=== PATIENT | female | born 1955 | race Caucasian/White ===

== ENCOUNTER → 2023-12-07 08:17 | Outpatient (REF) | payer BC, SELFPAY | LOC: RAD 08:17 | PROVIDERS: ATTENDING PHYSICIAN Internal Medicine Hematology & Oncology; FAMILY PHYSICIAN Internal Medicine; REFERRING PHYSICIAN Nurse Practitioner Adult Health | DX: C50.811 Malignant neoplasm of overlapping sites of right female breast (principal); C79.51 Secondary malignant neoplasm of bone; D70.1 Agranulocytosis secondary to cancer chemotherapy; C78.2 Secondary malignant neoplasm of pleura; J91.0 Malignant pleural effusion | CPT/HCPCS: 71260; 74177; 78306; A9503; Q9967 ==

== ENCOUNTER → 2024-01-07 16:06 | Outpatient (REF) | payer BC, SELFPAY | LOC: MRI 3T 16:06 | PROVIDERS: ATTENDING PHYSICIAN Nurse Practitioner Adult Health; FAMILY PHYSICIAN Internal Medicine | DX: C50.811 Malignant neoplasm of overlapping sites of right female breast (principal); C79.51 Secondary malignant neoplasm of bone; D70.1 Agranulocytosis secondary to cancer chemotherapy; C78.2 Secondary malignant neoplasm of pleura; J91.0 Malignant pleural effusion | CPT/HCPCS: 74183; A9575 ==

== ENCOUNTER → 2024-01-23 09:11 | Outpatient (REF) | payer BC, SELFPAY ==
[2024-01-23 09:31] VITALS: BP 145/98; BP_SYST 103
[2024-01-23 09:44] VITALS: BP 134/105
== END ==
LOC: RADI 09:11
PROVIDERS: ATTENDING PHYSICIAN Internal Medicine Hematology & Oncology
DX: J90 Pleural effusion, not elsewhere classified (principal)
CPT/HCPCS: 32555; 71045

== ENCOUNTER → 2024-04-16 12:10 | Outpatient (REF) | payer BC, SELFPAY ==
[2024-04-16 12:20] LABS: % Basophils 0.4 % (0-2); % Eosinophils 1.2 % (0-6); % Immature Granulocytes 1.3 % (0-0.5); % Lymphocytes 4.9 % (20.5-51.1); % Monocytes 13.7 % (1.7-9.3); % Neutrophils 78.5 % (42.2-75.2); Absolute Basophils 0.1 10^3/uL (0-0.2); Absolute Eosinophils 0.2 10^3/uL (0-0.7); Absolute Immature Granulocytes 0.2 10^3/uL (0-0.05); Absolute Lymphocytes 0.7 10^3/uL (1.2-3.4); Absolute Neutrophils 11.4 10^3/uL (1.4-6.5); Hemoglobin 10.7 g/dL (12.0-16.0); Mean Corp Hgb Conc. 33.4 g/dL (33.0-37.0); Mean Corpuscular Hgb 31.2 pg (27.0-31.0); Mean Corpuscular Volume 93.3 fL (81.0-99.0); Nucleated Red Blood Cells % 0.5 %; Red Blood Cell Count 3.43 10^6/uL (4.20-5.40); Red Cell Dist. Width 22.6 % (11.5-14.5); White Blood Cell Count 14.6 10^3/uL (4.8-10.8)
[2024-04-16 13:10] LABS: Anisocytosis 2+; Normal RBC Morphology No
[2024-04-16 13:11] LABS: Hypochromasia 2+; Ovalocytes Slight; Poikilocytosis Slight
== END ==
LOC: OIDL 12:10
PROVIDERS: ATTENDING PHYSICIAN Internal Medicine Hematology & Oncology
DX: C50.811 Malignant neoplasm of overlapping sites of right female breast (principal)
CPT/HCPCS: 85025

== ENCOUNTER → 2024-05-14 08:49 | Outpatient (REF) | payer BC, SELFPAY ==
[2024-05-14 09:00] LABS: % Basophils 0.7 % (0-2); % Eosinophils 1.1 % (0-6); % Immature Granulocytes 0.3 % (0-0.5); % Lymphocytes 3.5 % (20.5-51.1); % Monocytes 18.5 % (1.7-9.3); % Neutrophils 75.9 % (42.2-75.2); Absolute Basophils 0.1 10^3/uL (0-0.2); Absolute Eosinophils 0.1 10^3/uL (0-0.7); Absolute Lymphocytes 0.3 10^3/uL (1.2-3.4); Absolute Monocytes 1.4 10^3/uL (0.1-0.6); Absolute Neutrophils 5.6 10^3/uL (1.4-6.5); Hematocrit 31.9 % (37.0-47.0); Hemoglobin 10.7 g/dL (12.0-16.0); Mean Corp Hgb Conc. 33.5 g/dL (33.0-37.0); Mean Corpuscular Hgb 30.6 pg (27.0-31.0); Mean Corpuscular Volume 91.1 fL (81.0-99.0); Platelet Count 178 10^3/uL (130-400); Red Cell Dist. Width 23.6 % (11.5-14.5); White Blood Cell Count 7.4 10^3/uL (4.8-10.8)
[2024-05-14 09:41] LABS: ALT (SGPT) 28 U/L (0-35); AST (SGOT) 44 U/L (14-36); Albumin 4.1 g/dl (3.5-5.0); Alkaline Phosphatase 172 U/L (38-126); Blood Urea Nitrogen 11 mg/dl (7-17); Calcium 9.5 mg/dl (8.4-10.2); Carbon Dioxide 27 mmol/L (22-30); Chloride 94 mmol/L (98-107); Glucose 114 mg/dl (70-99); Potassium 4.5 mmol/L (3.5-5.1); Sodium 130 mmol/L (135-145); Total Bilirubin 0.6 mg/dl (0.2-1.3); Total Protein 6.5 g/dl (6.3-8.2); eGFR > 60.00
== END ==
LOC: OIDL 08:49
PROVIDERS: ATTENDING PHYSICIAN Internal Medicine Hematology & Oncology
DX: C50.811 Malignant neoplasm of overlapping sites of right female breast (principal)
CPT/HCPCS: 80053; 85025

== ENCOUNTER → 2024-05-21 10:06 | Outpatient (REF) | payer BC, SELFPAY ==
[2024-05-21 09:38] LABS: % Basophils 0.9 % (0-2); % Eosinophils 2.3 % (0-6); % Immature Granulocytes 0.7 % (0-0.5); % Lymphocytes 4.2 % (20.5-51.1); % Monocytes 8.9 % (1.7-9.3); Absolute Eosinophils 0.1 10^3/uL (0-0.7); Absolute Lymphocytes 0.2 10^3/uL (1.2-3.4); Absolute Monocytes 0.4 10^3/uL (0.1-0.6); Absolute Neutrophils 3.5 10^3/uL (1.4-6.5); Hematocrit 30.6 % (37.0-47.0); Hemoglobin 10.1 g/dL (12.0-16.0); Mean Corpuscular Hgb 29.8 pg (27.0-31.0); Mean Corpuscular Volume 90.3 fL (81.0-99.0); Platelet Count 146 10^3/uL (130-400); Red Blood Cell Count 3.39 10^6/uL (4.20-5.40); Red Cell Dist. Width 24.3 % (11.5-14.5); White Blood Cell Count 4.3 10^3/uL (4.8-10.8)
[2024-05-21 10:57] LABS: ALT (SGPT) 29 U/L (0-35); AST (SGOT) 46 U/L (14-36); Albumin 4.2 g/dl (3.5-5.0); Alkaline Phosphatase 172 U/L (38-126); Blood Urea Nitrogen 13 mg/dl (7-17); Carbon Dioxide 27 mmol/L (22-30); Chloride 94 mmol/L (98-107); Glucose 93 mg/dl (70-99); Potassium 4.7 mmol/L (3.5-5.1); Sodium 131 mmol/L (135-145); Total Bilirubin 0.5 mg/dl (0.2-1.3); Total Protein 6.6 g/dl (6.3-8.2); eGFR > 60.00
== END ==
LOC: OIDL 10:06
PROVIDERS: ATTENDING PHYSICIAN Internal Medicine Hematology & Oncology
DX: C50.811 Malignant neoplasm of overlapping sites of right female breast (principal)
CPT/HCPCS: 80053; 85025

== ENCOUNTER → 2024-06-03 08:25 | Outpatient (REF) | payer BC, SELFPAY | LOC: RAD 08:25 | PROVIDERS: ATTENDING PHYSICIAN Internal Medicine Hematology & Oncology; FAMILY PHYSICIAN Internal Medicine | DX: C50.811 Malignant neoplasm of overlapping sites of right female breast (principal); C79.51 Secondary malignant neoplasm of bone; D70.1 Agranulocytosis secondary to cancer chemotherapy; C78.2 Secondary malignant neoplasm of pleura; J91.0 Malignant pleural effusion | CPT/HCPCS: 71260; 74177; Q9967 ==

== ENCOUNTER → 2024-06-04 11:11 | Outpatient (REF) | payer BC, SELFPAY ==
[2024-06-04 10:42] LABS: % Basophils 0.4 % (0-2); % Eosinophils 0.9 % (0-6); % Immature Granulocytes 1.1 % (0-0.5); % Lymphocytes 5.3 % (20.5-51.1); % Monocytes 16.4 % (1.7-9.3); % Neutrophils 75.9 % (42.2-75.2); Absolute Basophils 0.1 10^3/uL (0-0.2); Absolute Eosinophils 0.1 10^3/uL (0-0.7); Absolute Immature Granulocytes 0.2 10^3/uL (0-0.05); Absolute Lymphocytes 0.8 10^3/uL (1.2-3.4); Absolute Monocytes 2.3 10^3/uL (0.1-0.6); Absolute Neutrophils 10.7 10^3/uL (1.4-6.5); Hematocrit 33.8 % (37.0-47.0); Hemoglobin 11.2 g/dL (12.0-16.0); Mean Corp Hgb Conc. 33.1 g/dL (33.0-37.0); Mean Corpuscular Hgb 29.1 pg (27.0-31.0); Mean Corpuscular Volume 87.8 fL (81.0-99.0); Nucleated Red Blood Cells % 0.2 %; Platelet Count 143 10^3/uL (130-400); Red Blood Cell Count 3.85 10^6/uL (4.20-5.40); Red Cell Dist. Width 25.2 % (11.5-14.5); White Blood Cell Count 14.1 10^3/uL (4.8-10.8)
[2024-06-04 10:53] LABS: ALT (SGPT) 21 U/L (0-35); AST (SGOT) 39 U/L (14-36); Alkaline Phosphatase 194 U/L (38-126); Blood Urea Nitrogen 8 mg/dl (7-17); Calcium 9.5 mg/dl (8.4-10.2); Carbon Dioxide 28 mmol/L (22-30); Chloride 95 mmol/L (98-107); Glucose 91 mg/dl (70-99); Sodium 132 mmol/L (135-145); Total Bilirubin 0.5 mg/dl (0.2-1.3); eGFR > 60.00
[2024-06-04 11:11] LABS: Total Protein 6.3 g/dl (6.3-8.2)
== END ==
LOC: OIDL 11:11
PROVIDERS: ATTENDING PHYSICIAN Internal Medicine Hematology & Oncology
DX: C50.811 Malignant neoplasm of overlapping sites of right female breast (principal)
CPT/HCPCS: 80053; 85025

== ENCOUNTER → 2024-06-11 10:14 | Outpatient (REF) | payer BC, SELFPAY ==
--- NOTE | 2024-06-11 10:51 | W.PN.UPDATE ---
Update Note
Progress Note Update
69 yo female with h/o breast cancer comes in today for a port site check. She was sent over from the cancer center for evaluation. They note some discoloration over the port. The patient denies pain, fever, chills, erythema or warmth to the area.
She does state she has had some itching around the site which she was scratching earlier.
PE: WN/WD 69 yo female in NAD. The right chest has a SL port. The site is slightly ecchymotic. There is no tenderness to palpation. There is no warmth or erythema. There is no fluctuance. There is no wound dehiscence or open areas over the
port. There is no warmth, erythema or tenderness over the catheter or venotomy.
A/P: 69 yo female with h/o breast cancer comes for port site check.
There is no sign of infection/cellulitis
There is no sign of wound dehiscence
Port is OK to use
== END ==
LOC: RADI 10:14
PROVIDERS: ATTENDING PHYSICIAN Nurse Practitioner Acute Care
DX: Z45.2 Encounter for adjustment and management of vascular access device (principal); C50.919 Malignant neoplasm of unspecified site of unspecified female breast

== ENCOUNTER → 2024-06-11 13:39 | Outpatient (REF) | payer BC, SELFPAY ==
[2024-06-11 10:45] LABS: % Basophils 1.3 % (0-2); % Immature Granulocytes 4.9 % (0-0.5); % Lymphocytes 7.2 % (20.5-51.1); % Monocytes 18.1 % (1.7-9.3); % Neutrophils 67.5 % (42.2-75.2); Absolute Immature Granulocytes 0.2 10^3/uL (0-0.05); Absolute Lymphocytes 0.2 10^3/uL (1.2-3.4); Absolute Monocytes 0.6 10^3/uL (0.1-0.6); Absolute Neutrophils 2.1 10^3/uL (1.4-6.5); Hematocrit 33.7 % (37.0-47.0); Hemoglobin 10.9 g/dL (12.0-16.0); Mean Corp Hgb Conc. 32.3 g/dL (33.0-37.0); Mean Corpuscular Hgb 28.5 pg (27.0-31.0); Mean Corpuscular Volume 88.2 fL (81.0-99.0); Platelet Count 145 10^3/uL (130-400); Red Blood Cell Count 3.82 10^6/uL (4.20-5.40); Red Cell Dist. Width 25.1 % (11.5-14.5)
[2024-06-11 13:05] LABS: ALT (SGPT) 24 U/L (0-35); AST (SGOT) 41 U/L (14-36); Albumin 4.1 g/dl (3.5-5.0); Alkaline Phosphatase 175 U/L (38-126); Blood Urea Nitrogen 12 mg/dl (7-17); Calcium 9.8 mg/dl (8.4-10.2); Carbon Dioxide 31 mmol/L (22-30); Chloride 93 mmol/L (98-107); Glucose 102 mg/dl (70-99); Potassium 5.1 mmol/L (3.5-5.1); Sodium 131 mmol/L (135-145); Total Bilirubin 0.7 mg/dl (0.2-1.3); Total Protein 6.5 g/dl (6.3-8.2); eGFR > 60.00
== END ==
LOC: OIDL 13:39
PROVIDERS: ATTENDING PHYSICIAN Internal Medicine Hematology & Oncology
DX: C50.811 Malignant neoplasm of overlapping sites of right female breast (principal)
CPT/HCPCS: 80053; 85025

== ENCOUNTER → 2024-06-13 16:00 | Outpatient (REF) | payer BC, SELFPAY | LOC: MRI 3T 16:00 | PROVIDERS: ATTENDING PHYSICIAN Internal Medicine Hematology & Oncology; FAMILY PHYSICIAN Internal Medicine | DX: C79.51 Secondary malignant neoplasm of bone (principal); D70.1 Agranulocytosis secondary to cancer chemotherapy; C78.2 Secondary malignant neoplasm of pleura; J91.0 Malignant pleural effusion; C50.811 Malignant neoplasm of overlapping sites of right female breast | CPT/HCPCS: 74183; A9575 ==

== ENCOUNTER → 2024-06-17 10:10 | Outpatient (REF) | payer BC, SELFPAY | LOC: HWRCS 10:10 | PROVIDERS: ATTENDING PHYSICIAN Internal Medicine Hematology & Oncology | DX: J91.0 Malignant pleural effusion (principal) | CPT/HCPCS: 93306 ==

== ENCOUNTER → 2024-06-19 10:35 | Outpatient (REF) | payer BC, SELFPAY ==
[2024-06-19 10:58] VITALS: BP 135/92; BP_SYST 106
== END ==
LOC: RADI 10:35
PROVIDERS: ATTENDING PHYSICIAN Internal Medicine Hematology & Oncology; FAMILY PHYSICIAN Internal Medicine
DX: J90 Pleural effusion, not elsewhere classified (principal)
CPT/HCPCS: 88305; 32555; 71045; 88112; 88341; 88342

== ENCOUNTER → 2024-06-24 16:08 | Outpatient (REF) | payer BC, SELFPAY ==
[2024-06-24 16:51] LABS: Hematocrit 31.3 % (37.0-47.0); Hemoglobin 10.5 g/dL (12.0-16.0); Mean Corp Hgb Conc. 33.5 g/dL (33.0-37.0); Mean Corpuscular Hgb 28.5 pg (27.0-31.0); Mean Corpuscular Volume 85.1 fL (81.0-99.0); Platelet Count 131 10^3/uL (130-400); Red Blood Cell Count 3.68 10^6/uL (4.20-5.40); White Blood Cell Count 28.6 10^3/uL (4.8-10.8)
[2024-06-24 17:12] LABS: ALT (SGPT) 26 U/L (0-35); AST (SGOT) 47 U/L (14-36); Albumin 3.9 g/dl (3.5-5.0); Alkaline Phosphatase 213 U/L (38-126); Blood Urea Nitrogen 12 mg/dl (7-17); Calcium 9.3 mg/dl (8.4-10.2); Carbon Dioxide 27 mmol/L (22-30); Chloride 93 mmol/L (98-107); Glucose 94 mg/dl (70-99); Potassium 4.3 mmol/L (3.5-5.1); Sodium 130 mmol/L (135-145); Total Bilirubin 0.5 mg/dl (0.2-1.3); Total Protein 6.1 g/dl (6.3-8.2); eGFR > 60.00
[2024-06-24 17:58] LABS: % Basophils 0.5 % (0-2); % Eosinophils 0.9 % (0-6); % Immature Granulocytes 0.9 % (0-0.5); % Lymphocytes 7.7 % (20.5-51.1); % Monocytes 12.3 % (1.7-9.3); % Neutrophils 77.7 % (42.2-75.2); Absolute Basophils 0.1 10^3/uL (0-0.2); Absolute Eosinophils 0.3 10^3/uL (0-0.7); Absolute Immature Granulocytes 0.3 10^3/uL (0-0.05); Absolute Lymphocytes 2.2 10^3/uL (1.2-3.4); Absolute Monocytes 3.5 10^3/uL (0.1-0.6); Absolute Neutrophils 22.2 10^3/uL (1.4-6.5); Nucleated Red Blood Cells % 0.2 %
[2024-06-24 18:00] LABS: Anisocytosis 2+; Normal RBC Morphology No
[2024-06-24 18:01] LABS: Ovalocytes Slight; Poikilocytosis Slight
[2024-06-24 18:03] LABS: Schistocytes Slight
[2024-06-24 18:04] LABS: Microcytosis 1+
== END ==
LOC: OIDL 16:08
PROVIDERS: ATTENDING PHYSICIAN Internal Medicine Hematology & Oncology
DX: C50.811 Malignant neoplasm of overlapping sites of right female breast (principal)
CPT/HCPCS: 80053; 85025

== ENCOUNTER → 2024-07-16 15:45 | Outpatient (REF) | payer BC, SELFPAY ==
[2024-07-16 10:00] LABS: % Basophils 0.5 % (0-2); % Eosinophils 5.1 % (0-6); % Immature Granulocytes 0.5 % (0-0.5); % Lymphocytes 7.9 % (20.5-51.1); % Monocytes 24.5 % (1.7-9.3); % Neutrophils 60.8 % (42.2-75.2); Absolute Eosinophils 0.2 10^3/uL (0-0.7); Absolute Lymphocytes 0.4 10^3/uL (1.2-3.4); Absolute Monocytes 0.9 10^3/uL (0.1-0.6); Absolute Neutrophils 2.3 10^3/uL (1.4-6.5); Hematocrit 29.7 % (37.0-47.0); Hemoglobin 9.9 g/dL (12.0-16.0); Mean Corp Hgb Conc. 32.9 g/dL (33.0-37.0); Mean Corpuscular Hgb 27.8 pg (27.0-31.0); Mean Corpuscular Volume 84.6 fL (81.0-99.0); Nucleated Red Blood Cells % 1.1 %; Platelet Count 173 10^3/uL (130-400); Red Blood Cell Count 3.63 10^6/uL (4.20-5.40); Red Cell Dist. Width 25.9 % (11.5-14.5); White Blood Cell Count 3.8 10^3/uL (4.8-10.8)
[2024-07-16 10:13] LABS: ALT (SGPT) 22 U/L (0-35); AST (SGOT) 35 U/L (14-36); Albumin 3.8 g/dl (3.5-5.0); Alkaline Phosphatase 141 U/L (38-126); Blood Urea Nitrogen 8 mg/dl (7-17); Calcium 9.4 mg/dl (8.4-10.2); Carbon Dioxide 28 mmol/L (22-30); Chloride 96 mmol/L (98-107); Glucose 107 mg/dl (70-99); Potassium 4.3 mmol/L (3.5-5.1); Sodium 135 mmol/L (135-145); Total Bilirubin 0.7 mg/dl (0.2-1.3); Total Protein 6.3 g/dl (6.3-8.2); eGFR > 60.00
[2024-07-16 10:57] LABS: Absolute Neutrophils -Man Diff 2.5 10^3/uL (1.4-6.5); Atypical Lymphocytes 1 %; Band Neutrophils 11 % (0-3); Eosinophils 6 % (0-6); Lymphocytes 4 % (20-51); Monocytes 17 % (2-9); Myelocytes 3 % (-); Segmented Neutrophils 57 % (42-75)
[2024-07-16 10:58] LABS: Anisocytosis 2+; Hypochromasia 1+; Normal RBC Morphology No; Platelets Checked Yes; Poikilocytosis 1+
[2024-07-16 10:59] LABS: Acanthocytes 1+; Schistocytes 1+
[2024-07-16 11:00] LABS: Macrocytosis Occasional; Microcytosis 1+
[2024-07-16 11:01] LABS: Ovalocytes 1+; Total Cells Counted 100
== END ==
LOC: OIDL 15:45
PROVIDERS: ATTENDING PHYSICIAN Internal Medicine Hematology & Oncology
DX: C50.811 Malignant neoplasm of overlapping sites of right female breast (principal)
CPT/HCPCS: 80053; 85025

== ENCOUNTER → 2024-08-05 12:03 | Outpatient (REF) | payer BC, SELFPAY ==
[2024-08-05 11:55] LABS: Hematocrit 31.5 % (37.0-47.0); Hemoglobin 10.4 g/dL (12.0-16.0); Mean Corpuscular Hgb 26.9 pg (27.0-31.0); Mean Corpuscular Volume 81.4 fL (81.0-99.0); Platelet Count 153 10^3/uL (130-400); Red Blood Cell Count 3.87 10^6/uL (4.20-5.40); Red Cell Dist. Width 26.7 % (11.5-14.5); White Blood Cell Count 7.7 10^3/uL (4.8-10.8)
[2024-08-05 12:05] LABS: ALT (SGPT) 27 U/L (0-35); AST (SGOT) 42 U/L (14-36); Albumin 3.8 g/dl (3.5-5.0); Alkaline Phosphatase 130 U/L (38-126); Blood Urea Nitrogen 8 mg/dl (7-17); Carbon Dioxide 30 mmol/L (22-30); Chloride 94 mmol/L (98-107); Glucose 98 mg/dl (70-99); Potassium 4.4 mmol/L (3.5-5.1); Sodium 136 mmol/L (135-145); Total Bilirubin 0.5 mg/dl (0.2-1.3); Total Protein 6.2 g/dl (6.3-8.2); eGFR > 60.00
[2024-08-05 12:20] LABS: Absolute Neutrophils -Man Diff 6.3 10^3/uL (1.4-6.5); Band Neutrophils 3 % (0-3); Lymphocytes 8 % (20-51); Metamyelocytes 1 % (-); Monocytes 6 % (2-9); Myelocytes 3 % (-); Platelets Checked Yes; Segmented Neutrophils 79 % (42-75)
[2024-08-05 12:21] LABS: Anisocytosis 1+; Normal RBC Morphology No; Ovalocytes Slight; Schistocytes Slight; Total Cells Counted 100
[2024-08-08 05:00] LABS: CA 27-29 95.1 U/mL (<=39.0)
== END ==
LOC: OIDL 12:03
PROVIDERS: ATTENDING PHYSICIAN Internal Medicine Hematology & Oncology
DX: C50.811 Malignant neoplasm of overlapping sites of right female breast (principal); C79.51 Secondary malignant neoplasm of bone; D70.1 Agranulocytosis secondary to cancer chemotherapy; C78.2 Secondary malignant neoplasm of pleura; J91.0 Malignant pleural effusion
CPT/HCPCS: 80053; 85025; 86300

== ENCOUNTER → 2024-08-26 11:15 | Outpatient (REF) | payer BC, SELFPAY ==
[2024-08-26 09:18] LABS: ALT (SGPT) 23 U/L (0-35); AST (SGOT) 33 U/L (14-36); Albumin 3.7 g/dl (3.5-5.0); Alkaline Phosphatase 106 U/L (38-126); Blood Urea Nitrogen 10 mg/dl (7-17); Carbon Dioxide 29 mmol/L (22-30); Chloride 96 mmol/L (98-107); Glucose 115 mg/dl (70-99); Potassium 4.2 mmol/L (3.5-5.1); Sodium 136 mmol/L (135-145); Total Bilirubin 0.6 mg/dl (0.2-1.3); Total Protein 6.2 g/dl (6.3-8.2); eGFR > 60.00
[2024-08-26 09:46] LABS: Hematocrit 31.5 % (37.0-47.0); Hemoglobin 9.9 g/dL (12.0-16.0); Mean Corp Hgb Conc. 31.4 g/dL (33.0-37.0); Mean Corpuscular Hgb 26.1 pg (27.0-31.0); Mean Corpuscular Volume 82.9 fL (81.0-99.0); Platelet Count 141 10^3/uL (130-400); Red Cell Dist. Width 27.6 % (11.5-14.5)
[2024-08-26 13:31] LABS: Total Cells Counted 100
[2024-08-26 13:36] LABS: Poikilocytosis Moderate; Schistocytes Occasional
[2024-08-26 13:37] LABS: Hypochromasia Moderate; Normal RBC Morphology No; Platelets Checked Yes
[2024-08-26 13:38] LABS: Absolute Neutrophils -Man Diff 3.7 10^3/uL (1.4-6.5); Band Neutrophils 4 % (0-3); Eosinophils 4 % (0-6); Lymphocytes 7 % (20-51); Segmented Neutrophils 58 % (42-75)
[2024-08-26 13:39] LABS: Anisocytosis Moderate; Monocytes 16 % (2-9); Myelocytes 8 % (-); Nucleated Red Blood Cells 1 (-)
== END ==
LOC: OIDL 11:15
PROVIDERS: ATTENDING PHYSICIAN Internal Medicine Hematology & Oncology
DX: C50.811 Malignant neoplasm of overlapping sites of right female breast (principal); C79.51 Secondary malignant neoplasm of bone; D70.1 Agranulocytosis secondary to cancer chemotherapy; C78.2 Secondary malignant neoplasm of pleura; J91.0 Malignant pleural effusion
CPT/HCPCS: 80053; 85025

== ENCOUNTER → 2024-09-01 11:29 | Outpatient (REF) | payer BC, SELFPAY ==
[2024-09-01 13:00] LABS: Urine Albumin Trace (Neg - Trace); Urine Bilirubin Negative (Negative); Urine Character Clear (Clear); Urine Color Yellow; Urine Glucose Negative (Negative); Urine Ketone Negative (Negative); Urine Leukocyte 2+ (Negative); Urine Nitrite Negative (Negative); Urine Occult Blood 3+ (Negative); Urine Urobilinogen Negative (Neg - 1+)
[2024-09-01 14:25] LABS: Urine Urothelial Cell 0-2 /LPF (FEW)
[2024-09-01 14:26] LABS: Urine Red Blood Cell 16-20 /HPF (0-2)
[2024-09-01 14:27] LABS: Urine Bacteria Moderate (Negative); Urine White Cell 26-30 /HPF (0-5)
== END ==
LOC: REG 11:29
PROVIDERS: ATTENDING PHYSICIAN Internal Medicine Hematology & Oncology; FAMILY PHYSICIAN Internal Medicine
DX: C50.811 Malignant neoplasm of overlapping sites of right female breast (principal); C79.51 Secondary malignant neoplasm of bone; D70.1 Agranulocytosis secondary to cancer chemotherapy; C78.2 Secondary malignant neoplasm of pleura; J91.0 Malignant pleural effusion
CPT/HCPCS: 81003; 81015; 87077; 87086; 87186

== ENCOUNTER → 2024-09-10 10:03 | Outpatient (REF) | payer BC, SELFPAY ==
--- NOTE | 2024-09-10 10:16 | W.PN.UPDATE ---
Update Note
Progress Note Update
This is a 69 yo female with h/o breast cancer who comes in today for a port site check. She was sent over from the cancer center for evaluation. They note some discoloration over the port and a small scab ovee the center of the port where it has
been accessed. The patient denies pain, fever, chills, drainage from the site, erythema or warmth to the area. She states it has been like that for awhile and that there is concern it may erode through.
PE: WN/WD 69 yo female in NAD. The right chest has a SL port. The site is slightly discolored -which is chronic. There is a small scab over the middle of the port. There is no fluctuance or drainage. There is no tenderness to palpation. There
is no warmth or erythema. There is no wound dehiscence or open areas over the port. There is no warmth, erythema or tenderness over the catheter or venotomy.
A/P: 69 yo female with h/o breast cancer comes for port site check.
There is no sign of infection/cellulitis
There is no sign of wound dehiscence
Port is OK to use
== END ==
LOC: RADI 10:03
PROVIDERS: ATTENDING PHYSICIAN Internal Medicine Hematology & Oncology; FAMILY PHYSICIAN Internal Medicine
DX: Z45.2 Encounter for adjustment and management of vascular access device (principal); C50.811 Malignant neoplasm of overlapping sites of right female breast

== ENCOUNTER → 2024-09-12 08:57 | Outpatient (REF) | payer BC, SELFPAY | LOC: HWRCS 08:57 | PROVIDERS: ATTENDING PHYSICIAN Internal Medicine Hematology & Oncology; FAMILY PHYSICIAN Internal Medicine | DX: C50.811 Malignant neoplasm of overlapping sites of right female breast (principal) | CPT/HCPCS: 93306 ==

== ENCOUNTER → 2024-09-16 16:08 | Outpatient (REF) | payer BC, SELFPAY ==
[2024-09-16 09:27] LABS: Hematocrit 29.6 % (37.0-47.0); Hemoglobin 9.7 g/dL (12.0-16.0); Mean Corp Hgb Conc. 32.8 g/dL (33.0-37.0); Mean Corpuscular Hgb 26.6 pg (27.0-31.0); Mean Corpuscular Volume 81.1 fL (81.0-99.0); Platelet Count 148 10^3/uL (130-400); Red Blood Cell Count 3.65 10^6/uL (4.20-5.40); Red Cell Dist. Width 27.5 % (11.5-14.5); White Blood Cell Count 5.8 10^3/uL (4.8-10.8)
[2024-09-16 09:34] LABS: ALT (SGPT) 18 U/L (0-35); AST (SGOT) 32 U/L (14-36); Albumin 3.6 g/dl (3.5-5.0); Alkaline Phosphatase 110 U/L (38-126); Blood Urea Nitrogen 14 mg/dl (7-17); Calcium 9.4 mg/dl (8.4-10.2); Carbon Dioxide 28 mmol/L (22-30); Chloride 99 mmol/L (98-107); Glucose 94 mg/dl (70-99); Potassium 4.3 mmol/L (3.5-5.1); Sodium 136 mmol/L (135-145); Total Bilirubin 0.5 mg/dl (0.2-1.3); Total Protein 6.1 g/dl (6.3-8.2); eGFR > 60.00
[2024-09-16 09:54] LABS: Absolute Neutrophils -Man Diff 3.4 10^3/uL (1.4-6.5); Anisocytosis 2+; Band Neutrophils 11 % (0-3); Eosinophils 4 % (0-6); Lymphocytes 11 % (20-51); Monocytes 26 % (2-9); Normal RBC Morphology No; Platelets Checked Yes; Segmented Neutrophils 48 % (42-75)
[2024-09-16 09:55] LABS: Schistocytes 1+; Target Cells 1+; Total Cells Counted 100
== END ==
LOC: OIDL 16:08
PROVIDERS: ATTENDING PHYSICIAN Internal Medicine Hematology & Oncology
DX: C50.811 Malignant neoplasm of overlapping sites of right female breast (principal); C79.51 Secondary malignant neoplasm of bone; D70.1 Agranulocytosis secondary to cancer chemotherapy; C78.2 Secondary malignant neoplasm of pleura; J91.0 Malignant pleural effusion
CPT/HCPCS: 80053; 85025

== ENCOUNTER → 2024-09-23 08:34 | Outpatient (REF) | payer BC, SELFPAY | LOC: RAD 08:34 | PROVIDERS: ATTENDING PHYSICIAN Internal Medicine Hematology & Oncology; FAMILY PHYSICIAN Internal Medicine | DX: C50.811 Malignant neoplasm of overlapping sites of right female breast (principal); C79.51 Secondary malignant neoplasm of bone; D70.1 Agranulocytosis secondary to cancer chemotherapy; C78.2 Secondary malignant neoplasm of pleura; J91.0 Malignant pleural effusion | CPT/HCPCS: 71260; 74177; Q9967 ==

== ENCOUNTER → 2024-10-07 16:24 | Outpatient (REF) | payer BC, SELFPAY ==
[2024-10-07 12:35] LABS: Hematocrit 30.1 % (37.0-47.0); Hemoglobin 9.4 g/dL (12.0-16.0); Mean Corp Hgb Conc. 31.2 g/dL (33.0-37.0); Mean Corpuscular Hgb 25.8 pg (27.0-31.0); Mean Corpuscular Volume 82.5 fL (81.0-99.0); Platelet Count 131 10^3/uL (130-400); Red Blood Cell Count 3.65 10^6/uL (4.20-5.40); Red Cell Dist. Width 27.4 % (11.5-14.5); White Blood Cell Count 5.3 10^3/uL (4.8-10.8)
[2024-10-07 12:46] LABS: ALT (SGPT) 18 U/L (0-35); AST (SGOT) 31 U/L (14-36); Albumin 3.5 g/dl (3.5-5.0); Alkaline Phosphatase 136 U/L (38-126); Blood Urea Nitrogen 11 mg/dl (7-17); Calcium 8.8 mg/dl (8.4-10.2); Carbon Dioxide 29 mmol/L (22-30); Chloride 98 mmol/L (98-107); Glucose 96 mg/dl (70-99); Potassium 3.8 mmol/L (3.5-5.1); Sodium 135 mmol/L (135-145); Total Bilirubin 0.6 mg/dl (0.2-1.3); eGFR > 60.00
[2024-10-07 13:23] LABS: Absolute Neutrophils -Man Diff 3.2 10^3/uL (1.4-6.5); Anisocytosis 2+; Atypical Lymphocytes 2 %; Band Neutrophils 15 % (0-3); Eosinophils 2 % (0-6); Hypochromasia 2+; Lymphocytes 6 % (20-51); Metamyelocytes 2 % (-); Monocytes 17 % (2-9); Myelocytes 9 % (-); Normal RBC Morphology No; Platelets Checked Yes; Segmented Neutrophils 47 % (42-75)
[2024-10-07 13:24] LABS: Acanthocytes 1+; Microcytosis 1+; Schistocytes Occasional
[2024-10-07 13:25] LABS: Ovalocytes 1+; Total Cells Counted 100
== END ==
LOC: OIDL 16:24
PROVIDERS: ATTENDING PHYSICIAN Internal Medicine Hematology & Oncology
DX: C50.811 Malignant neoplasm of overlapping sites of right female breast (principal)
CPT/HCPCS: 80053; 85025

== ENCOUNTER → 2024-10-27 11:17 | Outpatient (REF) | payer BC, SELFPAY ==
--- NOTE | 2024-10-27 11:48 | W.PN.UPDATE ---
Update Note
Progress Note Update
69 yo female presents for port site check. Pt reports she had a scab over the well of the port that fell off but did not bleed. She otherwise feels well
PE: The well of the port is exposed. No surrounding erythema or bleeding. The area is nontender
A/P: Recommend port removal and replacement
== END ==
LOC: RADI 11:17
PROVIDERS: ATTENDING PHYSICIAN Internal Medicine Hematology & Oncology
DX: T82.594A Other mechanical complication of infusion catheter, initial encounter (principal); Y82.8 Other medical devices associated with adverse incidents
CPT/HCPCS: 80053; 85025

== ENCOUNTER → 2024-11-03 09:14 | Outpatient (REF) | payer BC, SELFPAY ==
[2024-11-03] VITALS (9 sets, daily range): BP systolic 79–114; BP diastolic 57–65
[2024-11-03] MEDS: ANCEF 10 IV (10:48)
[2024-11-03] MEDS: ATIVAN 0.5 MG IV (10:48)
== END ==
LOC: RADI 09:14
PROVIDERS: ATTENDING PHYSICIAN Internal Medicine Hematology & Oncology; FAMILY PHYSICIAN Internal Medicine
DX: Z45.2 Encounter for adjustment and management of vascular access device (principal); C50.811 Malignant neoplasm of overlapping sites of right female breast
CPT/HCPCS: 36561; 36590; 76937; 77001; 99152; 99153

== ENCOUNTER → 2024-11-06 10:43 | Outpatient (REF) | payer BC, SELFPAY ==
--- NOTE | 2024-11-06 11:01 | W.PN.UPDATE ---
Update Note
Progress Note Update
69 yo female presents for wound check. She had a right chest port removal on 11/03/24. When she removed the dressing she notice an opening as well as a small amount of bleeding. She was sent from [facility] for site check. Port was
removed because it eroded through the skin. After the removal that area was not sutured and left open to heal by secondary intention.
There is a 0.5cm area that is opened. There is no erythema or drainage. No warmth or concern for infection.
Pt was advised this could take awhile to granulate in and that she should keep the area covered
== END ==
LOC: RADI 10:43
PROVIDERS: ATTENDING PHYSICIAN Internal Medicine Hematology & Oncology; FAMILY PHYSICIAN Internal Medicine
DX: Z48.817 Encounter for surgical aftercare following surgery on the skin and subcutaneous tissue (principal)

== ENCOUNTER → 2024-11-14 08:07 | Outpatient (REF) | payer BC, SELFPAY | LOC: WOUND 08:07 | PROVIDERS: ATTENDING PHYSICIAN Surgery; FAMILY PHYSICIAN Internal Medicine | DX: T81.31XA Disruption of external operation (surgical) wound, not elsewhere classified, initial encounter (principal); T81.41XA Infection following a procedure, superficial incisional surgical site, initial encounter; S21.101A Unspecified open wound of right front wall of thorax without penetration into thoracic cavity, initial encounter; Y83.8 Other surgical procedures as the cause of abnormal reaction of the patient, or of later complication, without mention of misadventure at the time of the procedure; X58.XXXA Exposure to other specified factors, initial encounter | CPT/HCPCS: 87070; 87075; 87205; 99204 ==

== ENCOUNTER → 2024-11-18 10:40 | Outpatient (REF) | payer BC, SELFPAY ==
[2024-11-18 11:18] LABS: ALT (SGPT) 39 U/L (0-35); AST (SGOT) 66 U/L (14-36); Albumin 3.8 g/dl (3.5-5.0); Alkaline Phosphatase 325 U/L (38-126); Blood Urea Nitrogen 11 mg/dl (7-17); Calcium 9.4 mg/dl (8.4-10.2); Carbon Dioxide 27 mmol/L (22-30); Chloride 93 mmol/L (98-107); Glucose 96 mg/dl (70-99); Potassium 3.8 mmol/L (3.5-5.1); Sodium 130 mmol/L (135-145); Total Bilirubin 1.2 mg/dl (0.2-1.3); Total Protein 6.3 g/dl (6.3-8.2); eGFR > 60.00
[2024-11-18 11:21] LABS: Hematocrit 31.7 % (37.0-47.0); Mean Corp Hgb Conc. 31.5 g/dL (33.0-37.0); Mean Corpuscular Hgb 25.4 pg (27.0-31.0); Mean Corpuscular Volume 80.7 fL (81.0-99.0); Platelet Count 109 10^3/uL (130-400); Red Blood Cell Count 3.93 10^6/uL (4.20-5.40); Red Cell Dist. Width 28.3 % (11.5-14.5); White Blood Cell Count 3.9 10^3/uL (4.8-10.8)
[2024-11-18 11:38] LABS: Absolute Neutrophils -Man Diff 2.5 10^3/uL (1.4-6.5); Band Neutrophils 5 % (0-3); Lymphocytes 5 % (20-51); Monocytes 17 % (2-9); Segmented Neutrophils 61 % (42-75)
[2024-11-18 11:39] LABS: Eosinophils 3 % (0-6); Metamyelocytes 1 % (-); Myelocytes 7 % (-); Normal RBC Morphology No
[2024-11-18 11:40] LABS: Anisocytosis 2+; Hypochromasia 1+; Platelets Checked Yes; Poikilocytosis 1+
[2024-11-18 11:41] LABS: Acanthocytes 2+; Schistocytes Occasional; Total Cells Counted 100
[2024-11-18 11:42] LABS: Atypical Lymphocytes 1 %
== END ==
LOC: OIDL 10:40
PROVIDERS: ATTENDING PHYSICIAN Internal Medicine Hematology & Oncology
DX: C50.811 Malignant neoplasm of overlapping sites of right female breast (principal); C79.51 Secondary malignant neoplasm of bone; D70.1 Agranulocytosis secondary to cancer chemotherapy
CPT/HCPCS: 80053; 85025

== ENCOUNTER → 2024-11-21 09:27 | Outpatient (REF) | payer BC, SELFPAY | LOC: WOUND 09:27 | PROVIDERS: ATTENDING PHYSICIAN Surgery; FAMILY PHYSICIAN Internal Medicine | DX: T81.31XA Disruption of external operation (surgical) wound, not elsewhere classified, initial encounter (principal); Y83.8 Other surgical procedures as the cause of abnormal reaction of the patient, or of later complication, without mention of misadventure at the time of the procedure; S21.101A Unspecified open wound of right front wall of thorax without penetration into thoracic cavity, initial encounter; S21.102A Unspecified open wound of left front wall of thorax without penetration into thoracic cavity, initial encounter; X58.XXXA Exposure to other specified factors, initial encounter | CPT/HCPCS: 11042 ==

== ENCOUNTER → 2024-11-28 09:34 | Outpatient (REF) | payer BC, SELFPAY | LOC: WOUND 09:34 | PROVIDERS: ATTENDING PHYSICIAN Surgery; FAMILY PHYSICIAN Internal Medicine | DX: T81.31XA Disruption of external operation (surgical) wound, not elsewhere classified, initial encounter (principal); X58.XXXA Exposure to other specified factors, initial encounter; T81.41XA Infection following a procedure, superficial incisional surgical site, initial encounter; S21.101A Unspecified open wound of right front wall of thorax without penetration into thoracic cavity, initial encounter | CPT/HCPCS: 11042 ==

== ENCOUNTER → 2024-12-05 09:56 | Outpatient (REF) | payer BC, SELFPAY | LOC: WOUND 09:56 | PROVIDERS: ATTENDING PHYSICIAN Surgery; FAMILY PHYSICIAN Internal Medicine | DX: T81.31XA Disruption of external operation (surgical) wound, not elsewhere classified, initial encounter (principal); T81.41XA Infection following a procedure, superficial incisional surgical site, initial encounter; S21.101A Unspecified open wound of right front wall of thorax without penetration into thoracic cavity, initial encounter; C50.919 Malignant neoplasm of unspecified site of unspecified female breast; J91.0 Malignant pleural effusion; Z85.3 Personal history of malignant neoplasm of breast; Y83.8 Other surgical procedures as the cause of abnormal reaction of the patient, or of later complication, without mention of misadventure at the time of the procedure | CPT/HCPCS: 11042 ==

== ENCOUNTER → 2024-12-09 14:28 | Outpatient (REF) | payer BC, SELFPAY ==
[2024-12-09 10:40] LABS: ALT (SGPT) 37 U/L (0-35); AST (SGOT) 70 U/L (14-36); Alkaline Phosphatase 340 U/L (38-126); Blood Urea Nitrogen 11 mg/dl (7-17); Calcium 9.5 mg/dl (8.4-10.2); Carbon Dioxide 26 mmol/L (22-30); Chloride 95 mmol/L (98-107); Glucose 101 mg/dl (70-99); Potassium 3.9 mmol/L (3.5-5.1); Sodium 130 mmol/L (135-145); Total Bilirubin 1.1 mg/dl (0.2-1.3); Total Protein 6.8 g/dl (6.3-8.2); eGFR > 60.00
[2024-12-09 11:15] LABS: Hematocrit 33.5 % (37.0-47.0); Hemoglobin 10.5 g/dL (12.0-16.0); Mean Corp Hgb Conc. 31.3 g/dL (33.0-37.0); Mean Corpuscular Hgb 25.4 pg (27.0-31.0); Mean Corpuscular Volume 80.9 fL (81.0-99.0); Platelet Count 106 10^3/uL (130-400); Red Blood Cell Count 4.14 10^6/uL (4.20-5.40); White Blood Cell Count 5.8 10^3/uL (4.8-10.8)
[2024-12-09 11:16] LABS: Absolute Neutrophils -Man Diff 4.2 10^3/uL (1.4-6.5); Anisocytosis 2+; Atypical Lymphocytes 4 %; Band Neutrophils 23 % (0-3); Lymphocytes 2 % (20-51); Metamyelocytes 5 % (-); Monocytes 12 % (2-9); Myelocytes 4 % (-); Normal RBC Morphology No; Platelets Checked Yes; Polychromasia 1+; Segmented Neutrophils 50 % (42-75)
[2024-12-09 11:17] LABS: Acanthocytes 2+; Hypochromasia 1+; Ovalocytes 1+; Schistocytes 1+; Total Cells Counted 100
== END ==
LOC: OIDL 14:28
PROVIDERS: ATTENDING PHYSICIAN Internal Medicine Hematology & Oncology
DX: C50.811 Malignant neoplasm of overlapping sites of right female breast (principal)
CPT/HCPCS: 80053; 85025

== ENCOUNTER → 2024-12-12 09:59 | Outpatient (REF) | payer BC, SELFPAY | LOC: HWRCS 09:59 | PROVIDERS: ATTENDING PHYSICIAN Internal Medicine Hematology & Oncology; FAMILY PHYSICIAN Internal Medicine | DX: C50.811 Malignant neoplasm of overlapping sites of right female breast (principal) | CPT/HCPCS: 93306 ==

== ENCOUNTER → 2024-12-12 13:14 | Outpatient (REF) | payer BC, SELFPAY | LOC: WOUND 13:14 | PROVIDERS: ATTENDING PHYSICIAN Surgery; FAMILY PHYSICIAN Internal Medicine | DX: T81.31XA Disruption of external operation (surgical) wound, not elsewhere classified, initial encounter (principal); S21.101A Unspecified open wound of right front wall of thorax without penetration into thoracic cavity, initial encounter; L59.8 Other specified disorders of the skin and subcutaneous tissue related to radiation; C50.919 Malignant neoplasm of unspecified site of unspecified female breast; J91.0 Malignant pleural effusion; Z85.3 Personal history of malignant neoplasm of breast; Y84.2 Radiological procedure and radiotherapy as the cause of abnormal reaction of the patient, or of later complication, without mention of misadventure at the time of the procedure; X58.XXXA Exposure to other specified factors, initial encounter | CPT/HCPCS: 99213 ==

== ENCOUNTER → 2024-12-18 08:35 | Outpatient (REF) | payer BC, SELFPAY | LOC: RAD 08:35 | PROVIDERS: ATTENDING PHYSICIAN Internal Medicine Hematology & Oncology; FAMILY PHYSICIAN Internal Medicine | DX: C50.811 Malignant neoplasm of overlapping sites of right female breast (principal); C79.51 Secondary malignant neoplasm of bone; D70.1 Agranulocytosis secondary to cancer chemotherapy; C78.2 Secondary malignant neoplasm of pleura; J91.0 Malignant pleural effusion | CPT/HCPCS: 71260; 74177; Q9967 ==

== ENCOUNTER → 2024-12-26 09:44 | Outpatient (REF) | payer BC, SELFPAY | LOC: WOUND 09:44 | PROVIDERS: ATTENDING PHYSICIAN Surgery | DX: T81.31XA Disruption of external operation (surgical) wound, not elsewhere classified, initial encounter (principal); S21.101A Unspecified open wound of right front wall of thorax without penetration into thoracic cavity, initial encounter; L59.8 Other specified disorders of the skin and subcutaneous tissue related to radiation; C50.919 Malignant neoplasm of unspecified site of unspecified female breast; J91.0 Malignant pleural effusion; Z85.3 Personal history of malignant neoplasm of breast; Y83.8 Other surgical procedures as the cause of abnormal reaction of the patient, or of later complication, without mention of misadventure at the time of the procedure; X58.XXXA Exposure to other specified factors, initial encounter | CPT/HCPCS: 99212 ==

== ENCOUNTER 2025-01-12 06:56 | Outpatient (REF) | payer BC, SELFPAY ==
[2025-01-12] VITALS (13 sets, daily range): BP systolic 73–133; BP diastolic 63–85
[2025-01-12 07:39] LABS: INR 0.91; PT 12.5 Sec (11.4-14.6)
== END 2025-01-12 12:30 | disposition home or self-care (01) ==
LOC: RADI 06:56
PROVIDERS: ATTENDING PHYSICIAN Internal Medicine Hematology & Oncology; FAMILY PHYSICIAN Internal Medicine; REFERRING PHYSICIAN Physician Assistant
DX: C78.7 Secondary malignant neoplasm of liver and intrahepatic bile duct (principal); C50.811 Malignant neoplasm of overlapping sites of right female breast; D68.8 Other specified coagulation defects
CPT/HCPCS: 88307; 36415; 47000; 76942; 85610; 88333; 88341; 88360; 99152

== ENCOUNTER → 2025-01-16 14:01 | Outpatient (REF) | payer BC, SELFPAY ==
[2025-01-16 14:58] LABS: Hematocrit 28.1 % (37.0-47.0); Hemoglobin 9.4 g/dL (12.0-16.0); Mean Corp Hgb Conc. 33.5 g/dL (33.0-37.0); Mean Corpuscular Hgb 25.1 pg (27.0-31.0); Mean Corpuscular Volume 75.1 fL (81.0-99.0); Platelet Count 28 10^3/uL (130-400); Red Blood Cell Count 3.74 10^6/uL (4.20-5.40); Red Cell Dist. Width 27.4 % (11.5-14.5); White Blood Cell Count 0.5 10^3/uL (4.8-10.8)
[2025-01-16 14:59] LABS: ALT (SGPT) 30 U/L (0-35); AST (SGOT) 104 U/L (14-36); Albumin 3.3 g/dl (3.5-5.0); Alkaline Phosphatase 254 U/L (38-126); Blood Urea Nitrogen 12 mg/dl (7-17); Calcium 10.4 mg/dl (8.4-10.2); Carbon Dioxide 27 mmol/L (22-30); Chloride 95 mmol/L (98-107); Glucose 100 mg/dl (70-99); Potassium 3.7 mmol/L (3.5-5.1); Sodium 130 mmol/L (135-145); Total Bilirubin 1.2 mg/dl (0.2-1.3); Total Protein 5.7 g/dl (6.3-8.2); eGFR > 60.00
[2025-01-16 16:59] LABS: % Lymphocytes 38.8 % (20.5-51.1); % Monocytes 14.3 % (1.7-9.3); % Neutrophils 44.9 % (42.2-75.2); Absolute Lymphocytes 0.2 10^3/uL (1.2-3.4); Absolute Monocytes 0.1 10^3/uL (0.1-0.6); Absolute Neutrophils 0.2 10^3/uL (1.4-6.5); Nucleated Red Blood Cells % 4.1 %
[2025-01-16 17:10] LABS: Acanthocytes 3+; Anisocytosis 3+; Hypochromasia 2+; Microcytosis 1+; Normal RBC Morphology No; Schistocytes 1+; Target Cells 1+
== END ==
LOC: OIDL 14:01
PROVIDERS: ATTENDING PHYSICIAN Internal Medicine Hematology & Oncology
DX: C50.811 Malignant neoplasm of overlapping sites of right female breast (principal); C79.51 Secondary malignant neoplasm of bone; D70.1 Agranulocytosis secondary to cancer chemotherapy; C78.2 Secondary malignant neoplasm of pleura; J91.0 Malignant pleural effusion
CPT/HCPCS: 80053; 85025

== ENCOUNTER → 2025-01-20 10:49 | Outpatient (REF) | payer BC, SELFPAY ==
[2025-01-20 11:07] VITALS: BP 154/104; BP_SYST 104
[2025-01-20 11:23] LABS: Hematocrit 35.3 % (37.0-47.0); Hemoglobin 11.7 g/dL (12.0-16.0); Mean Corp Hgb Conc. 33.1 g/dL (33.0-37.0); Mean Corpuscular Hgb 24.7 pg (27.0-31.0); Mean Corpuscular Volume 74.5 fL (81.0-99.0); Platelet Count 21 10^3/uL (130-400); Red Blood Cell Count 4.74 10^6/uL (4.20-5.40); Red Cell Dist. Width 27.4 % (11.5-14.5); White Blood Cell Count 0.7 10^3/uL (4.8-10.8)
[2025-01-20 11:50] LABS: Band Neutrophils 12 % (0-3); Lymphocytes 28 % (20-51); Monocytes 4 % (2-9); Segmented Neutrophils 56 % (42-75)
[2025-01-20 11:51] LABS: Acanthocytes 2+; Anisocytosis 2+; Hypochromasia 1+; Normal RBC Morphology No; Nucleated Red Blood Cells 28 (-); Ovalocytes 1+; Platelets Checked Yes; Polychromasia 1+; Schistocytes 1+; Target Cells 1+
[2025-01-20] MEDS: ATIVAN 0.5 MG IV (11:51)
[2025-01-20 11:52] LABS: Total Cells Counted 100
[2025-01-20] MEDS: NSS (PRESERVATIVE FREE) 0.25 ML IV (11:52)
[2025-01-20 11:53] LABS: Absolute Neutrophils -Man Diff 0.4 10^3/uL (1.4-6.5)
[2025-01-20 12:51] VITALS: BP 137/99
== END ==
LOC: RADI 10:49
PROVIDERS: ATTENDING PHYSICIAN Internal Medicine Hematology & Oncology; FAMILY PHYSICIAN Internal Medicine
DX: C92.00 Acute myeloblastic leukemia, not having achieved remission (principal); D61.818 Other pancytopenia; C50.811 Malignant neoplasm of overlapping sites of right female breast; C79.51 Secondary malignant neoplasm of bone; Z01.812 Encounter for preprocedural laboratory examination
CPT/HCPCS: 88305; 88311; 88312; 36415; 38222; 77012; 85025; 88313

== ENCOUNTER 2025-01-26 14:58 | Inpatient (IN) | payer BC, SELFPAY ==
[2025-01-26] VITALS (7 sets, daily range): BP systolic 89–112; BP diastolic 64–78
[2025-01-26 11:55] LABS: Glucose - Point of Care 87 mg/dl (70-99)
--- NOTE | 2025-01-26 12:33 | ED.GENMED ---
History of Present Illness
General
Chief Complaint: Weakness
Source: patient
Exam Limitations: none
Time Seen by Provider: 01/26/25 12:32
Nursing documentation reviewed up to this point in time: agreed with
History of Present Illness
History of Present Illness:
69-year-old female with breast cancer with mets to lung and bone who lives alone presents from EMS who state neighbors called them due to patient's seeming very weak over the past week.
Pt states as of last (4 days) she suddenly got weak and sleepy. She has her typical back pain, and feels her typical SOB intermittently.
She denies CP, abdominal pain, fever/chills. Denies UTI symptoms. She denies any recent falls.
She states she had a recent bone marrow biopsy showing metastasis and has appt with Dr. Pang at [facility] next week.
Past History
Past History
ED Past Medical History: Cancer (breast ca with mets to bone and lung)
ED Past Surgical History: Other
Social History
Tobacco: Former smoker
Alcohol: None
Drug: None
Personal:
Living: with family
Review of Systems
Review of Systems
Allergies reviewed?: Yes
All Other Systems: ROS reviewed and negative except as documented in HPI and ROS
Constitutional: Reports fatigue; Denies fever or chills
EENT: Denies sore throat
Respiratory: Denies trouble breathing
Cardiac: Denies chest pain or palpitations
ABD/GI: Denies abdominal pain, nausea, vomiting, diarrhea, bloody stools or black stools
: Denies dysuria or difficulty voiding
Musculoskeletal: Reports edema (mild both ankles)
Skin: Reports other (L upper chest port)
Neurological: Reports no symptoms
Phy Exam
Physical Exam
Physical Exam:
GENERAL: No acute distress. A&Ox3. Cachectic, frail
CONSTITUTIONAL: Afebrile.
EYES: clear, conjunctivae normal
ENMT: dry mucus membranes
RESPIRATORY: Regular respirations, nonlabored, lungs clear.
CARDIOVASCULAR: Regular rate and rhythm, no murmurs, no rubs.
GI: Soft, nontender, normal BS
MUSCULOSKELETAL: Moves with ease. Well perfused. Mild pitting edema both ankles.
SKIN: Warm, dry, pale
PSYCH: Depressed mood and affect. Well kept, interactive and appropriate
NEUROLOGIC: Awake, alert and oriented. No focal neurological deficits
Sepsis
Sepsis Screening
Sepsis Assessment: Sepsis Ruled Out
Sepsis Screen
Sepsis Screen: Sepsis Ruled Out
Date: 01/26/25
Time: 16:57
Course
Orders/Labs/Results
Orders:
Orders
01/26/25 11:46
Electrocardiogram (*1) Urgent
Reason for Study: Other
Other Reason for Exam: Possible Stroke
Bedside Glucose- Treatment ONCE
Cardiac Monitoring- Treatment ONCE
EKG- Treatment ONCE
Vital Signs As Directed
Frequency: Other
Weight As Directed
Frequency: Once
Comment: ZERO STRETCHER SCALE FOR ACCURATE WEIGHT
01/26/25 12:24
Complete Blood Count/With Diff Urgent
Comprehensive Metabolic Panel Urgent
Vitamin D, 25-Oh Urgent
01/26/25 13:25
Urinalysis Reflex To Culture Urgent
Date Specimen was Collected: 01/26/25
Time Specimen was Collected: 13:23
Urine Microscopic Reflex Cult Urgent
01/26/25 13:33
ONCOLOGY CONSULT Urgent
Consulting Provider: Fozia Nassar
Was physician already notified: Yes
Reason for consult: metastatic ca, weakness
01/26/25 13:55
CR Chest - 2 Views Stat
Comment:
Reason For Exam: sob
01/26/25 14:05
Admit/Transfer Patient As Directed
Co-Sign Provider:
Level of Care: Inpatient admission
Assign to:: Telemetry
Physician / Group: jakub
Diagnosis: hypercalcemia
Reason for Telemetry: Other
Other Reason for Telemetry: electrolyte imbalance
Date to Stop Telemetry: 01/28/25
Time to Stop Telemetry: 11:00
Reason for Hospitalization: electrolyte imbalance
Expected length of stay greater than two midnights?: Yes
ELOS- Estimated Length of Stay in days: 3
I certify the patient meets the requirements for IP care: Yes
PRN Pain Medication Management As Directed
May give lesser potent ordered pain med per pt: Yes
preference::
Protocol:: Medication orders for pain may be administered in a
manner that supports deferring to patient preference
when the pt is:
- Requesting an ordered lesser potent pain medication.
Least to most potent pain medications are defined
as: acetaminophen < NSAID < tramadol < opioids
(morphine, oxycodone, hydromorphone).
- Requesting a lesser dose of the same medication IF
ORDERED.
- Requesting a less intrusive route of administration
if both routes are prescribed by the provider (PO <
IV).
01/26/25 14:06
Code Status As Directed
Resuscitation Status: Full Code
01/26/25 14:12
Add On- LAB Urgent
Comments:: In lab
Tests Added?: PTH includes calcium, Vitamin D, 25-OH
01/28/25 11:00
DC Protocol for Telemetry ONCE
Abnormal Lab Results
01/26/25 01/26/25
12:24 13:25
WBC 1.1 L* 10^3/uL
(4.8-10.8)
RBC 3.84 L 10^6/uL
(4.20-5.40)
Hgb 9.4 L g/dL
(12.0-16.0)
Hct 28.5 L %
(37.0-47.0)
MCV 74.2 L fL
(81.0-99.0)
MCH 24.5 L pg
(27.0-31.0)
RDW 27.0 H %
(11.5-14.5)
Plt Count 11 L* D 10^3/uL
(130-400)
Absolute Neuts (auto) 0.9 L* 10^3/uL
(1.4-6.5)
Absolute Lymphs (auto) 0.1 L 10^3/uL
(1.2-3.4)
Immature Gran % 0.9 H %
(0-0.5)
Neutrophils % 79.5 H %
(42.2-75.2)
Lymphocytes % 11.2 L %
(20.5-51.1)
Carbon Dioxide 32 H mmol/L
(22-30)
BUN 32 H mg/dl
(7-17)
Glucose 103 H mg/dl
(70-99)
Calcium 12.9 H mg/dl
(8.4-10.2)
Total Bilirubin 2.0 H mg/dl
(0.2-1.3)
AST 102 H U/L
(14-36)
Alkaline Phosphatase 181 H U/L
(38-126)
Total Protein 5.6 L g/dl
(6.3-8.2)
Albumin 2.8 L g/dl
(3.5-5.0)
Vitamin D 25-Hydroxy 18.2 L ng/mL
(30-80)
Urine Ketones 1+ A
(Negative)
Urine Bilirubin 1+ A
(Negative)
Urine Urobilinogen 2+ A
(Neg - 1+)
Urine Bacteria (Reflex) Few A
(Negative)
Urine Albumin (Reflex) 2+ A
(Neg - Trace)
01/26/25 12:24
01/26/25 12:24
Vital Signs
Initial and Last Documented VS:
Initial Vital Signs
Temp Pulse Resp BP Pulse Ox
97.7 F 93 24 96/76 99
01/26/25 11:47 01/26/25 11:47 01/26/25 11:47 01/26/25 11:47 01/26/25 11:47
Last Documented Vital Signs
Temp Pulse Resp BP Pulse Ox
97.7 F 80 20 110/64 97
01/26/25 11:47 01/26/25 15:45 01/26/25 15:45 01/26/25 15:10 01/26/25 15:45
MDM/Problems Addressed
MDM/Problems Addressed:
69-year-old female with breast cancer with mets to lung and bone who lives alone presents from EMS who state neighbors called them due to patient's seeming very weak over the past week.
Pt states as of last (4 days) she suddenly got weak and sleepy. She has her typical back pain, and feels her typical SOB intermittently.
She denies CP, abdominal pain, fever/chills. Denies UTI symptoms. She denies any recent falls.
She states she had a recent bone marrow biopsy showing metastasis and has appt with Dr. Pang at [facility] next week.
Afebrile, NAD, very weak and ill appearing
VSS
1:15 p.m.
Pancytopenia secondary to breast CA with mets, hypercalcemia d/t bony involvement
CBC abnormal, worsening from her baseline
CMP: Abnormal at baseline, slightly worse today
U/A pending
Hospitalist and Dr. Nassar Oncology notified of admission.
*EKG
EKG Intrepretation Date: 01/26/25
Interpretation: abnormal
Heart Rate: 93
Rate: normal
Rhythm: sinus and PAC's
Umpire: normal axis
Interval: normal interval
QRS Pattern: normal QRS
Ischemia: T-wave inversion
*Critical Care Note
Total Time (30-74mins, 75-104mins- exclusive of procedures): Not Applicable
ED Attending Note
-
Portions of this chart may have been created with voice recognition software.� Occasional wrong word or��sound alike� substitutions may have occurred due to the inherent limitations of voice recognition software.
Discharge Plan
Departure
Patient Disposition: Admit
Date of Disposition: 01/26/25
Time of Disposition: 13:36
Admit to: Med/Surg
Presentation/result/management discussed w/ accepting MD/DO: Hospitalist
Condition: Serious
Discharge Problem:
Breast cancer metastasized to bone, Breast cancer metastasized to lung
Interventions
Interventions:
*Risk Screen - Suicide Last Done: 01/26/25 11:47
*General Assessment Last Done: 01/26/25 11:47
*Neglect/Abuse Screening Last Done: 01/26/25 11:47
*ED- Fall Risk Assessment Last Done: 01/26/25 11:47
*ED COVID-19 Vaccine History Last Done: 01/26/25 11:47
ED- Cardiac Assessment Last Done: 01/26/25 14:05
ED- Neurological Assessment Last Done: 01/26/25 14:05
ED- Pulmonary Assessment Last Done: 01/26/25 14:05
[2025-01-26 12:59] LABS: % Eosinophils 0.9 % (0-6); % Immature Granulocytes 0.9 % (0-0.5); % Lymphocytes 11.2 % (20.5-51.1); % Monocytes 7.5 % (1.7-9.3); % Neutrophils 79.5 % (42.2-75.2); ALT (SGPT) 26 U/L (0-35); AST (SGOT) 102 U/L (14-36); Absolute Lymphocytes 0.1 10^3/uL (1.2-3.4); Absolute Monocytes 0.1 10^3/uL (0.1-0.6); Absolute Neutrophils 0.9 10^3/uL (1.4-6.5); Albumin 2.8 g/dl (3.5-5.0); Alkaline Phosphatase 181 U/L (38-126); Blood Urea Nitrogen 32 mg/dl (7-17); Calcium 12.9 mg/dl (8.4-10.2); Carbon Dioxide 32 mmol/L (22-30); Chloride 100 mmol/L (98-107); Estimated Creatinine Clearance 68 ml/min; Glucose 103 mg/dl (70-99); Hematocrit 28.5 % (37.0-47.0); Hemoglobin 9.4 g/dL (12.0-16.0); Mean Corpuscular Hgb 24.5 pg (27.0-31.0); Mean Corpuscular Volume 74.2 fL (81.0-99.0); Nucleated Red Blood Cells % 1.9 %; Platelet Count 11 10^3/uL (130-400); Potassium 3.6 mmol/L (3.5-5.1); Red Blood Cell Count 3.84 10^6/uL (4.20-5.40); Sodium 137 mmol/L (135-145); Total Protein 5.6 g/dl (6.3-8.2); White Blood Cell Count 1.1 10^3/uL (4.8-10.8); eGFR > 60.00
--- NOTE | 2025-01-26 13:34 | HPS.HSE ---
Family Physician
-
Family Physician: Nnamdi Foster
Chief Complaint
-
weak and tired
History of Present Illness
69-year-old female with breast cancer with mets to lung and bone. hypothyroidism, HTN who lives alone presents with generalized weakness, poor appetite, sleeping more than usual since last . she is complaining of MENDOZA. denied dizzy or
syncope.denied fever, chills, chest pain. stated worsening of sob. denied abdominal pain,n,v,d. denied dysuria or hematuria. patient noted confused upon my assessment.
She states she had a recent bone marrow biopsy showing metastasis and has appt with Dr. Pang at [facility] next week.
Upon arrival she was noted confused, hypercalcemia, pancytopenia. Admitting for further management. Admitting for further management
Medical History
Past Medical History
Past Medical History: Reports Other
Additional Past Medical History:
Hypothyroidism
Pulmonary hypertension
Mitral regurgitation
Metastatic breast cancer
PAC
Hypertension
Malignant pleural effusion
Past Surgical History: Reports Other
Additional Past Surgical History:
Right breast lumpectomy and axillary lymph node dissection
Vertebroplasty
Social History
Tobacco: Non-smoker
Alcohol: None
Drug: None
Personal: Single
Living: Alone
Family History
Family History: Not pertinent
Allergies / Home Medications
Allergies reflects when Allergies were last updated in [facility].
Home Medications with original date entered in [facility]
Allergy/Medication List:
Allergies
Allergy/AdvReac Type Severity Reaction Status Date / Time
erythromycin base Allergy vaginal Verified 01/20/25 11:14
[Erythromycin Base] burning
Home Medications
lisinopril 10 mg tablet 10 mg PO DAILY 05/21/20
levothyroxine 50 mcg tablet 50 mcg PO DAILY 02/06/23
Review of Systems
-
Constitutional: Reports No Symptoms and Fatigue
EENT: Reports No Symptoms
Respiratory: Reports Trouble Breathing
Cardiac: Reports No Symptoms
Abdomen/GI: Reports No Symptoms
: Reports No Symptoms
Musculoskeletal: Reports No Symptoms
Skin: Reports No Symptoms
Neurological: Reports Weakness
Endocrine: Reports No Symptoms
Hematologic/Lymphatic: Reports No Symptoms
Psych: Reports No Symptoms
Physical Exam
Vital Signs
Vital Signs
Temp Pulse Resp BP Pulse Ox
97.7 F 91 35 110/75 99
01/26/25 11:47 01/26/25 12:23 01/26/25 12:15 01/26/25 12:00 01/26/25 11:47
Physical Exam
General: Well Developed, Well Nourished and No Apparent Distress
HEENT: NormoCephalic, Moist mucous membranes and Atraumatic
Respiratory: Clear
Cardiac: S1/S2 and Regular Rhythm; No Murmur or Rub
GI: Soft, Non Tender, Non Distended and Normal Bowel Sounds; No Organomegaly
Rectal: Deferred by Provider
Musculoskeletal: No Clubbing, No Cyanosis and No Edema
Skin: No Rash
Neuro: Nonfocal/grossly intact
Psych: Calm and Confused
Laboratory Results
-
01/26/25 12:24
01/26/25 12:24
Laboratory Results
Total Bilirubin 2.0 mg/dl (0.2-1.3) H 01/26/25 12:24
AST 102 U/L (14-36) H 01/26/25 12:24
ALT 26 U/L (0-35) 01/26/25 12:24
Alkaline Phosphatase 181 U/L (38-126) H 01/26/25 12:24
Data Reviewed
-
Lab Data: Labs Reviewed by me
Impression/Plan
-
# Weakness likely from metastatic disease
-PT/OT consulted
# Metastatic breast cancer to lungs and bone
# Pancytopenia WBCs 1.1, hemoglobin 9.4, platelets 11 likely from metastatic disease
-Oncology consulted
# Metabolic encephalopathy likely from hypercalcemia
-Calcium 12.9
-Pamidronate IV once in ER
-Monitor BMP in a.m.
-UA negative
-Obtain vitamin D and PTH
# Short of breath likely from metastatic disease
-Oxygenating very well on room air
-Obtain chest x-ray
# Transaminitis likely dehydration
-AST 102, T. bili 2.0
-Fluids continued
-Trend LFTs in a.m.
#hypothyroidism
-levothyroxine continued
#hypertension
-lisinopril continued with hold parameter.
# DVT prophylaxis
-SCD
# CODE STATUS
-Full code
[2025-01-26 13:42] LABS: Urine Albumin 2+ (Neg - Trace); Urine Bilirubin 1+ (Negative); Urine Character Clear (Clear); Urine Color Amber; Urine Glucose Negative (Negative); Urine Ketone 1+ (Negative); Urine Leukocyte Negative (Negative); Urine Nitrite Negative (Negative); Urine Occult Blood Negative (Negative); Urine Urobilinogen 2+ (Neg - 1+)
[2025-01-26 13:57] LABS: Urine Bacteria Few (Negative); Urine Red Blood Cell 0-2 /HPF (0-2); Urine White Cell 0-2 /HPF (0-5)
--- NOTE | 2025-01-26 14:10 | PHANOTE ---
01/26/25: PP called and left voice mail at 13:58.
--- NOTE | 2025-01-26 14:10 | W.PN.UPDATE ---
Update Note
Progress Note Update
This is an addendum to the H&P written by Molly Perze on 01/26/2025.� Patient seen and examined independently with MANOMETER TECHNICIAN.
69-year-old female past medical history of breast cancer metastases to lung, bone presenting for weakness over the past week.� Ongoing back pain/shortness of breath.� No infectious symptoms.� She had bone marrow biopsy showing marrow involvement.�
Complains of shortness of breath and back pain.
Vitals showed blood pressure of 96/76.� Labs show white blood cell count of 1.1, platelets of 11, anemia of 9.4 which is stable.� Calcium of 12.9, albumin of 2.8.
Patient with pancytopenia secondary to breast cancer with bone marrow involvement.
Patient with hypercalcemia of malignancy.� Weakness likely multifactorial secondary to hypercalcemia and progressive metastatic breast cancer.��
Check chest x-ray to evaluate for shortness of breath.
Check PTH, vitamin D.� IV fluids, calcitonin, pamidronate.� Oncology consulted.
--- NOTE | 2025-01-26 14:30 | PHANOTE ---
01/26/25: PP The patient was not able to answer any questions when attempting to review her medications. Looked to call family members/ contacts but her profile did not list any. A call was made to the patient's cellphone number in hopes of getting
to a family member but no answer. LVM @13:58
[2025-01-26 15:58] LABS: Vitamin D, 25-OH*** 18.2 ng/mL (30-80)
[2025-01-26] MEDS: ZOMETA 105 MG IV (17:05)
--- NOTE | 2025-01-26 17:21 | W.PN.UPDATE ---
Addendum entered and electronically signed by Fozia Nassar MD 01/26/25 17:26:
Contacted cousin Jacques Najera, her next of kin per our outpt records.
Had to leave voicemail.
Left my cell phone for him to call me back if needed.
Original Note:
Update Note
Progress Note Update
Full Consult to follow.
Pt with AML, progressive breast cancer met to liver.
Agrees to DNR, hospice.
Suggest inpt hospice.
I will notify next of kin.
[2025-01-26] MEDS: NSS 1000 IV (19:25)
--- NOTE | 2025-01-26 20:44 | CON.ONC ---
Impression
Impression
Secondary AML with TP53 mutation
Metastatic breast cancer, recent progression in liver
Malignant hypercalcemia
Plan
Plan
Prognosis dismal.
Even without the metastatic breast cancer, survival for [id number] AML would be 5-7 months with treatment. Her breast cancer has also progressed through multiple lines of therapy.
Recommend hospice. Pt amenable although would like to be able to go home. Her cousins are her next of kin and would not be able to care for her. Await Case Management input.
Now DNR.
Does not appear to be in pain or suffering.
Thank you for consult.
Patient History
History of Present Illness
69 yo woman well known to me from outpt setting for history of metastatic breast cancer. Recent disease progression in liver. Pt developed severe cytopenias prompting bone marrow biopsy. Prelim path: AML with 39% blasts and TP53 mutation. Pt
declining rapidly. She was found down by family members today and 911 called. Found to be hypercalcemic.
Past-Medical/Surgical History
Past Medical History
Hypothyroidism
Pulmonary hypertension
Mitral regurgitation
Metastatic breast cancer
PAC
Hypertension
Malignant pleural effusion
Past Surgical History
Right breast lumpectomy and axillary lymph node dissection
Vertebroplasty
Social History
Tobacco: Non-smoker
Alcohol: None
Drug: None
Personal:
Living: Alone
Family History
Not pertinent
Patient Medication
�Medication �Instructions �Recorded �Confirmed �Last Taken �Type
lisinopril 10 mg tablet 10 mg PO DAILY 05/21/20 01/26/25 01/20/25 History
levothyroxine 50 mcg tablet 50 mcg PO DAILY 02/06/23 01/26/25 01/20/25 History
Active Medications
Generic Name Dose Route Start Last Admin
Trade Name Freq PRN Reason Stop Dose Admin
Bisacodyl 10 mg 01/26/25 19:15
Bisacodyl 10 Mg Rectal Suppository RECTAL 02/23/25 19:14
[id number] PRN
constipation
Sodium Chloride 1,000 mls @ 80 mls/hr 01/26/25 19:15 01/26/25 19:25
Nss IV 1,000 mls
.[id number] VIANNEY Administration
Levothyroxine Sodium 50 mcg 01/27/25 06:00
Levothyroxine 50 Mcg Tablet PO 02/24/25 05:59
DAILY@0600 VIANNEY
Lisinopril 10 mg 01/27/25 08:00
Lisinopril 10 Mg Tablet PO 02/24/25 07:59
DAILY VIANNEY
Polyethylene Glycol 17 grams 01/26/25 19:15
Polyethylene Glycol Powder 17 Grams Packet PO 02/23/25 19:14
DAILYPRN PRN
constipation
Senna/Docusate Sodium 1 tablet 01/26/25 19:15
Docusate W/Senna (Faith-Colace) Tablet PO 02/23/25 19:14
BIDPRN PRN
constipation
Sodium Chloride 0 flush 01/26/25 20:00
Sodium Chloride 0.9% (Flush) Syringe IV 02/23/25 19:59
PER PROTOCOL VIANNEY
Review of Systems
-
History Source: Patient
Physical Exam
-
Ill-appearing, lethargic but responsive
Labs
Lab Results
WBC 1.1 10^3/uL (4.8-10.8) L* 01/26/25 12:24
RBC 3.84 10^6/uL (4.20-5.40) L 01/26/25 12:24
Hgb 9.4 g/dL (12.0-16.0) L 01/26/25 12:24
Hct 28.5 % (37.0-47.0) L 01/26/25 12:24
MCV 74.2 fL (81.0-99.0) L 01/26/25 12:
MCH 24.5 pg (27.0-31.0) L 01/26/25 12:
MCHC 33.0 g/dL (33.0-37.0) 01/26/25 12:
RDW 27.0 % (11.5-14.5) H 01/26/25 12:
Plt Count 11 10^3/uL (130-400) L* D 01/26/25 12:
MPV Not Reportable 01/26/25 12:
Abs Immat Gran (auto) 0.0 10^3/uL (0-0.05) 01/26/25 12:
Absolute Neuts (auto) 0.9 10^3/uL (1.4-6.5) L* 01/26/25 12:
Absolute Lymphs (auto) 0.1 10^3/uL (1.2-3.4) L 01/26/25 12:
Absolute Monos (auto) 0.1 10^3/uL (0.1-0.6) 01/26/25 12:
Absolute Eos (auto) 0.0 10^3/uL (0-0.7) 01/26/25 12:
Absolute Basos (auto) 0.0 10^3/uL (0-0.2) 01/26/25 12:
Immature Gran % 0.9 % (0-0.5) H 01/26/25 12:
Neutrophils % 79.5 % (42.2-75.2) H 01/26/25 12:
Lymphocytes % 11.2 % (20.5-51.1) L 01/26/25:
Monocytes % 7.5 % (1.7-9.3) 01/26/25 12:
Eosinophils % 0.9 % (0-6) 01/26/25:
Basophils % 0.0 % (0-2) 01/26/25 12:24
Creatinine 0.6 mg/dL (0.6-1.0) 01/26/25 12:24
Vital Signs
Vital Signs
Temp Pulse Resp BP Pulse Ox
97.6 F 87 18 108/66 98
01/26/25 20:30 01/26/25 20:30 01/26/25 20:30 01/26/25 20:30 01/26/25 20:30
[2025-01-27 03:00] VITALS: BP 108/62
[2025-01-27] MEDS: MORPHINE SULFATE 1 MG IV ×2 (05:37→11:38)
[2025-01-27] MEDS: SYNTHROID 50 MCG PO (06:01)
[2025-01-27] MEDS: NSS 1000 IV (06:02)
[2025-01-27 06:24] LABS: ALT (SGPT) 22 U/L (0-35); AST (SGOT) 92 U/L (14-36); Albumin 2.3 g/dl (3.5-5.0); Alkaline Phosphatase 177 U/L (38-126); Blood Urea Nitrogen 29 mg/dl (7-17); Calcium 11.8 mg/dl (8.4-10.2); Carbon Dioxide 30 mmol/L (22-30); Chloride 103 mmol/L (98-107); Estimated Creatinine Clearance 58 ml/min; Glucose 87 mg/dl (70-99); Potassium 3.5 mmol/L (3.5-5.1); Sodium 137 mmol/L (135-145); Total Bilirubin 1.8 mg/dl (0.2-1.3); Total Protein 4.8 g/dl (6.3-8.2); eGFR > 60.00
[2025-01-27 06:31] LABS: Hematocrit 24.4 % (37.0-47.0); Hemoglobin 8.1 g/dL (12.0-16.0); Mean Corp Hgb Conc. 33.2 g/dL (33.0-37.0); Mean Corpuscular Hgb 24.5 pg (27.0-31.0); Mean Corpuscular Volume 73.9 fL (81.0-99.0); Platelet Count 10 10^3/uL (130-400); Red Cell Dist. Width 27.4 % (11.5-14.5); White Blood Cell Count 0.7 10^3/uL (4.8-10.8)
[2025-01-27 07:13] VITALS: BP 102/59
--- NOTE | 2025-01-27 10:03 | CM ---
Addendum entered by Zane Moody 01/27/25 11:34:
Per director hospice operations, pt is accepted for admission to inpatient hospice with hospice GIP and pt will be transferred to 2N unit.
CM is available for emotional support.
Original Note:
CM following re: discharge planning.
Reviewed pt's chart, met with pt and pt's cousin Marco at bedside [phone].
Pt is a 69 year old female, admitted with primary dx of generalized weakness. PMH includes: breast cancer with mets to lung and bone. hypothyroidism, HTN.
Pt is not a great historian, opens eyes and moaning for pain. Per Cousin Marco, pt lives alone 2SH, 1 step to enter, has no children, and mother at the same today few years ago. Pt has 2 cousins and a sister who is in a hospital.
Per Marco, he has a brother and both are next of kin. Marco stated his brother is coming to visit the pt today. Per Marco, pt has been declining rapidly, did not want to go to the hospital and per Marco, pt was told by her oncologist that she has
2-3 days to live. Marco stated he feels that pt did not want to go to the hospital because she wants to at home but there is nobody at home to care for her. Pt's cousin marco went to [facility], emotional support offered and provided.
Hospice consult noted. Pt's cousin is aware and he requested hospice. A referral to hospice made, spoke to hospice.
PCP: Nnamdi Foster
Pharmacy: [facility]
d/C plan: [facility]/hospice care.
CM is available for emotional support.
--- NOTE | 2025-01-27 11:21 | HOSPNOTE ---
Met with family member Jacques and explained hospice and the philosophy. The patient will be inpatient hospice, Attending and CM aware of plan and admissions was called to move patient to [facility]. The patient will be admitted inpatient hospice for pain
management requiring IV morphine. All in agreement.
--- NOTE | 2025-01-27 11:25 | W.DCSUMMARY ---
Documented by User: Mikey Medeiros MD, Resident 01/27/25 11:34
Discharge Summary
Discharge Data
Date of Admission: 01/26/25
Date of Discharge: 01/27/25
-
Pending Results: No
Hospital Course
Discharge diagnoses
Metastatic breast cancer
Pancytopenia
Cachexia
Malignant pleural effusion
Chronic pain syndrome
Acquired hypothyroidism
Pulmonary hypertension
Mitral regurgitation
Primary hypertension
Hospital course
Carmen Cheng, 69-year-old female, with breast malignancy metastatic to lungs, bones and marrow causing pancytopenia, and malignant cachexia presented to the hospital with several days of progressive weakness and fatigue. She was found to be
encephalopathic and dyspneic with considerable pain. Next of kin was contacted and after discission regarding extremely poor prognosis, decision was made to transition to hospice.
Discharge Plan
-
Patient Disposition: Hospice - Inpatient [facility]
Discharge Orders:
Discharge Patient (As Directed); Ordered 01/27/25
Ordered By: Mikey Medeiros
Discharge Date and Time
Discharge Date/Time: 01/27/25 12:41
Print Language: DOMINICAN

Documented by User: Arnaud Ordaz MD 01/27/25 13:58
Discharge Summary
Discharge Data
Date of Admission: 01/26/25
Date of Discharge: 01/27/25
Discharge Plan
-
Patient Disposition: Hospice - Inpatient DH
Discharge Orders:
Discharge Patient (As Directed); Ordered 01/27/25
Ordered By: Mikey Medeiros
Discharge Date and Time
Discharge Date/Time: 01/27/25 12:41
Print Language: DOMINICAN
--- NOTE | 2025-01-27 11:34 | HPS.HSE ---
Addendum entered and electronically signed by Mikey Medeiros MD, Resident 01/30/25 15:26:
CDI: Stage 1 sacral pressure injury
Addendum entered and electronically signed by Arnaud Ordaz MD 01/27/25 13:58:
hospice and comfort care
Original Note:
Family Physician
-
Family Physician: Nnamdi Foster
Chief Complaint
-
inpatient hospice
History of Present Illness
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 She was found to
be encephalopathic and dyspneic with considerable pain. Next of kin was contacted and after discission regarding extremely poor prognosis, decision was made to transition to hospice.
Medical History
Past Medical History
Past Medical History: Reports Other
Additional Past Medical History:
Hypothyroidism
Pulmonary hypertension
Mitral regurgitation
Metastatic breast cancer
PAC
Hypertension
Malignant pleural effusion
Past Surgical History: Reports Other
Additional Past Surgical History:
Right breast lumpectomy and axillary lymph node dissection
Vertebroplasty
Social History
Unable to obtain full social history at this time due to: Acuity
Family History
Family History: Not pertinent
Allergies / Home Medications
Allergies reflects when Allergies were last updated in 5minutes.
Home Medications with original date entered in 5minutes
Allergy/Medication List:
Allergies
Allergy/AdvReac Type Severity Reaction Status Date / Time
erythromycin base Allergy vaginal Verified 01/20/25 11:14
[Erythromycin Base] burning
Home Medications
lisinopril 10 mg tablet 10 mg PO DAILY 05/21/20
levothyroxine 50 mcg tablet 50 mcg PO DAILY 02/06/23
Review of Systems
-
Unable to obtain full review of systems at this time due to: Acuity
Physical Exam
Vital Signs
Vital Signs
Temp Pulse Resp BP Pulse Ox
98.4 F 83 18 102/59 97
01/27/25 07:13 01/27/25 07:13 01/27/25 07:13 01/27/25 07:13 01/27/25 07:13
Physical Exam
General: No Apparent Distress and Comfortable
Laboratory Results
-
01/27/25 05:53
01/27/25 05:53
Laboratory Results
Total Bilirubin 1.8 mg/dl (0.2-1.3) H 01/27/25 05:53
AST 92 U/L (14-36) H 01/27/25 05:53
ALT 22 U/L (0-35) 01/27/25 05:53
Alkaline Phosphatase 177 U/L (38-126) H 01/27/25 05:53
Impression/Plan
-
Patient resting comfortably. Family at bedside. Continue hospice care.
Diagnoses prior to transition to in-patient hospice:
Metastatic breast cancer
Pancytopenia
Malignant cachexia
Malignant pleural effusion
Cancer pain
Acquired hypothyroidism
Pulmonary hypertension
Mitral regurgitation
Primary hypertension
[2025-01-27] MEDS: ATIVAN 1 MG PO (11:45)
--- NOTE | 2025-01-27 15:13 | PN.CDI ---
CDI
- -
CDI:
Physician Documentation Request
Admit Date: 01/26/25 14:58
Dear Doctor Mala,
Patient admitted with metastatic breast cancer.
01/26 Nursing skin assessment, ' Stage 1 sacral pressure injury, POA.'
Physician documentation of the type and location of wounds is required for compliant documentation. Based on the above clinical findings and your assessment, please provide the following in your progress note:
Type (etiology) of ulcer/wound:
- Pressure (decubitus) ulcer
- Other
- Unable to determine
For a pressure ulcer, please also include the stage* of the ulcer:
- Stage 1 - Skin intact, non-blanchable redness
- Stage 2 - Partial thickness loss of dermis, includes intact or open blister
- Stage 3 - Full thickness tissue not including bone, tendon or muscle
- Stage 4 - Full thickness tissue loss, including exposed bone, tendon or muscle
- Unstageable - Full thickness loss in which the base of the ulcer is covered by slough (yellow, guajardo, lemus, green or brown) and/or eschar (guajardo, brown or black) in the wound bed.
- Unable to determine
Use of terms such as suspected, likely, concern for, or probable (associated with a specific diagnosis that is being evaluated, monitored, or treated as if it exists) are acceptable and can be coded in the inpatient setting, when documented at the
time of discharge.
Thank you,
Valentina HUNTER,RN,CCDS
CDI Specialist
Available via tiger text
Please use your independent medical judgment in providing your response.
*Source: National Pressure Ulcer Advisory Panel (NPUAP)
[2025-01-28 08:53] LABS: Intact PTH 13.3 pg/ml (13.6-85.8)
== END 2025-01-27 12:41 | disposition hospice, inpatient (51) | DRG 597 ==
LOC: 3 WEST ACU 14:58
PROVIDERS: Registered Nurse; Student in an Organized Health Care Education/Training Program; ADMITTING PHYSICIAN Hospitalist; ATTENDING PHYSICIAN Hospitalist; CONSULT PHYSICIAN Internal Medicine Hematology & Oncology; EMERGENCY PHYSICIAN Student in an Organized Health Care Education/Training Program; FAMILY PHYSICIAN Internal Medicine
DX: C50.919 Malignant neoplasm of unspecified site of unspecified female breast (principal); G93.41 Metabolic encephalopathy; C78.00 Secondary malignant neoplasm of unspecified lung; C79.51 Secondary malignant neoplasm of bone; D61.818 Other pancytopenia; C92.00 Acute myeloblastic leukemia, not having achieved remission; R64 Cachexia; Z68.1 Body mass index [BMI] 19.9 or less, adult; J91.0 Malignant pleural effusion; Z51.5 Encounter for palliative care; L89.151 Pressure ulcer of sacral region, stage 1; Z87.891 Personal history of nicotine dependence; E83.52 Hypercalcemia; E03.9 Hypothyroidism, unspecified; I10 Essential (primary) hypertension; Z66 Do not resuscitate; G89.4 Chronic pain syndrome; I27.20 Pulmonary hypertension, unspecified; I34.0 Nonrheumatic mitral (valve) insufficiency; G89.3 Neoplasm related pain (acute) (chronic)
CPT/HCPCS: 71046; 80053; 81003; 81015; 82306; 82962; 83970; 85025; 85027; 93005; 96360; 99284; J2430; J3489

== ENCOUNTER 2025-01-27 12:42 | Inpatient (IN) | payer OTHER, SELFPAY ==
[2025-01-27] MEDS: MORPHINE SULFATE 1 MG IV ×4 (13:07→20:30)
[2025-01-27] MEDS: ATIVAN 1 MG IV ×3 (13:08→20:26)
--- NOTE | 2025-01-27 13:55 | HOSPNOTE ---
Patient is GIP level of care appropriate. Morphine IV given at 12pm and 1pm, Ativan po at 12pm and Ativan IV at 1pm. Patient appears comfortable at 2pm. Nephew and niece in law present in room. Nephew states this is the first time she is relaxed
and appearing comfortable since admission. Support provided.
[2025-01-27 23:00] VITALS: BP 74/47
[2025-01-28] MEDS: MORPHINE SULFATE 1 MG IV ×2 (00:54→06:18)
[2025-01-28] MEDS: ATIVAN 1 MG IV ×2 (00:57→06:17)
[2025-01-28 07:27] VITALS: BP 67/46
--- NOTE | 2025-01-28 08:56 | W.PN.HOSP.TC ---
Addendum entered and electronically signed by Arnaud Ordaz MD 01/28/25 14:00:
provide hospice care
provide dignity and hygiene
Original Note:
Today's Communication/Plan
-
Continue hospice care.
Assessment / Plan
Assessment / Plan
Patient resting comfortably. Unchanged. Can transition to morphine drip if needed.
Diagnoses prior to transition to in-patient hospice:
Metastatic breast cancer
Pancytopenia
Malignant cachexia
Malignant pleural effusion
Cancer pain
Acquired hypothyroidism
Pulmonary hypertension
Mitral regurgitation
Primary hypertension
Anticipated Discharge: > 48 hours
Subjective/Interval History
-
Date of Service: January 28, 2025
Stable overnight. Comfortable.
Objective Data
-
Vital Signs:
Vital Signs
Temp Pulse Resp BP Pulse Ox
99.4 F 104 26 67/46 91
01/28/25 07:27 01/28/25 07:27 01/28/25 07:27 01/28/25 07:27 01/28/25 07:27
I&O
01/27/25 01/28/25 01/29/25
06:59 06:59 06:59
Intake Total 0 / 0
Balance 0 / 0
Review of Systems
-
Unable to obtain full review of systems at this time due to: Other (hospice)
Physical Exam
-
General: No Apparent Distress and Comfortable
--- NOTE | 2025-01-28 11:27 | CM ---
Chart reviewed and patient is on inpatient hospice with [facility].
Plan: Inpatient hospice
--- NOTE | 2025-01-28 12:17 | HOSPNOTE ---
Patient is unresponsive appears comfortable at this time. Encouraged to medicate prior to care or if patient appears uncomfortable. The patient will be seen daily by hospice nurse. Yesterday a bed was requested on [address]. No family was present
during my visit.
--- NOTE | 2025-01-28 15:08 | PTCARENOTE ---
patient comfortable, no s/s of pain, dependent with all care, turns with max assist x2, will continue to monitor.
--- NOTE | 2025-01-28 17:09 | HOSPNOTE ---
Carmen was sleeping peacefully, non-responsive, and did not show signs of pain. No family was present. [employer] provided emotional and spiritual support through presence, words of comfort, and prayer, commending Carmen to God. Spoke with cousin, "Sal"Jacques, by phone during the visit. Jacques requests Sacrament fo the Sick for Carmen, and Grill Cook will make arrangements for a mainframe programmer analyst to come tomorrow, as all our local priests are attending a mandatory archdiocesan gathering today. Grill Cook will
continue support through weekly visits, remaining available to patient and family as needed.
[2025-01-28 17:33] VITALS: BP 83/50
--- NOTE | 2025-01-28 17:35 | PTCARENOTE ---
patient transferred to room 2131. telephone report given to Jason. patient sent via bed with her belonging
[2025-01-28 19:46] VITALS: BP 92/54
--- NOTE | 2025-01-29 03:40 | W.PN.DEATH ---
Pronouncement of
-
Called to see patient to pronounce.
No spontaneous heart tones or respirations noted.
Patient not responsive to verbal stimuli.
Patient is pronounced .
Time of : 02:30
Date of : 01/29/25
Cause of : Failure to thrive, breast malignancy metastatic to lungs, bones and marrow, Malignant pleural effusion, pancytopenia, malignant cachexia, Hypothyroidism
Pulmonary hypertension, and Mitral regurgitation
Family Notified: Yes (Jacques/ cousin )
--- NOTE | 2025-01-29 08:42 | W.DCSUMMARY ---
Discharge Summary
Discharge Data
Date of Admission: 01/27/25
Date of Discharge: 01/29/25
-
Pending Results: No
Hospital Course
Discharge diagnoses
Metastatic breast cancer
Pancytopenia
Malignant cachexia
Malignant pleural effusion
Cancer pain
Acquired hypothyroidism
Pulmonary hypertension
Mitral regurgitation
Primary hypertension
Hospital course
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 She was found to
be encephalopathic and dyspneic with considerable pain. Next of kin was contacted and after discission regarding extremely poor prognosis, decision was made to transition to hospice on 01-27-25. She passed overnight on 01-29-25. Family notified over
the phone.
Discharge Plan
-
Patient Disposition:
Date/Time
Date/Time: 01/29/25 02:30
Discharge Date and Time
Print Language: MALAGASY
--- NOTE | 2025-01-29 08:56 | PTCARENOTE ---
Per fire coordinator RN, patient's family member to come see patient this AM, told by covering [employer] overnight to keep patient in room for family visit. All IVs/tubes removed by fire coordinator RN, [facility] notified.
== END 2025-01-29 10:55 | disposition expired | DRG 951 ==
LOC: 2 NORTH 12:42
PROVIDERS: Student in an Organized Health Care Education/Training Program; ADMITTING PHYSICIAN Hospitalist
DX: Z51.5 Encounter for palliative care (principal); D61.818 Other pancytopenia; J91.0 Malignant pleural effusion; R64 Cachexia; C79.51 Secondary malignant neoplasm of bone; C79.52 Secondary malignant neoplasm of bone marrow; C78.01 Secondary malignant neoplasm of right lung; C78.02 Secondary malignant neoplasm of left lung; G93.40 Encephalopathy, unspecified; C50.919 Malignant neoplasm of unspecified site of unspecified female breast; E03.9 Hypothyroidism, unspecified; G89.3 Neoplasm related pain (acute) (chronic); I10 Essential (primary) hypertension; R53.1 Weakness; R53.83 Other fatigue; R06.00 Dyspnea, unspecified; R62.7 Adult failure to thrive; I27.20 Pulmonary hypertension, unspecified; I34.0 Nonrheumatic mitral (valve) insufficiency; Z60.2 Problems related to living alone